=== PATIENT | female | born 1955 | race Caucasian/White ===

== ENCOUNTER 2024-01-17 05:12 | Day surgery (SDC) | payer MEDICARE ==
[2024-01-17] MEDS ORDERED: Midazolam 1 MG/ML 2 ML SDV IV ONE (05:13)
[2024-01-17] MEDS ORDERED: fentaNYL 100 MCG/2 ML SDV IV ONE (05:13)
[2024-01-17] MEDS: Dextrose 5%-0.45% NaCl 1,000 ML IV SCH (05:55)
[2024-01-17] MEDS ORDERED: Midazolam 1 MG/ML 2 ML SDV ONE (06:06)
[2024-01-17] MEDS ORDERED: fentaNYL 100 MCG/2 ML SDV ONE (06:07)
[2024-01-17] MEDS: fentaNYL 100 MCG/2 ML SDV IV ONE ×2 (06:20)
[2024-01-17] MEDS: Midazolam 1 MG/ML 2 ML SDV IV ONE ×2 (06:21→06:22)
[2024-01-17 07:56] VITALS: BP 144/58; PULSE 53
== END 2024-01-17 08:03 | disposition home or self-care (01) ==
LOC: DL.ENDO 05:12
PROVIDERS: ATTEND Internal Medicine Gastroenterology
DX: K29.50 Unspecified chronic gastritis without bleeding (principal); Z98.84 Bariatric surgery status; E11.9 Type 2 diabetes mellitus without complications; E78.5 Hyperlipidemia, unspecified; I10 Essential (primary) hypertension; Z88.0 Allergy status to penicillin; Z88.8 Allergy status to other drugs, medicaments and biological substances
CPT/HCPCS: 43239; 87077; J2250; J3010; J7799; 88305